=== PATIENT | female | born 1940 | race Caucasian/White ===

== ENCOUNTER 2018-02-13 16:21 | Emergency (ER) | payer MEDICARE, OTHER, SELFPAY ==
[2018-02-13 16:21] VITALS: BP 192/87; PULSE 118; RESP 16; TEMP 36.9; O2SAT 99; BMI 23.3
--- NOTE | 2018-02-13 16:25 | RAD_ITS ---
STUDY: X-RAY - LEFT SHOULDER REASON FOR EXAM: Female, 78 years old. Fall, left shoulder pain. TECHNIQUE: 4 view(s) of the shoulder. COMPARISON: None. FINDINGS: Normal glenohumeral articulation. Normal acromioclavicular joint. Normal acromion. Normal humeral head and visualized proximal humerus. The soft tissue structures are unremarkable. Normal visualized pulmonary apex. RAD/Shoulder min 2 Views IMPRESSION: Normal x-ray examination of the shoulder. No evidence of acute traumatic injury. Electronically Signed: Isaiah Carvalho MD at 17:01 EST Tel , Service support ,
--- NOTE | 2018-02-13 16:50 | ED.VISSUMM ---
- ER Visit Summary Date of Service: 02/13/18 Chief Complaint: Traumatic left shoulder pain History of Present Illness: The patient is a 78 F who is right-hand dominant fell this morning at airport traveling back to [place]. She states she had a near fall. There was no significant direct trauma. She states she was pulling a luggage bag with her right upper extremity. She fell backwards. She completed physical therapy for muscle strain. She apparently has a small rotator cuff tear as well. She denies respiratory or cardiac symptoms. She states she has pain with movement of the left upper extremity and localizes the pain to the left shoulder. Physical Examination: Vital signs are marked for noted blood pressure 192/87. Heart rate 118. She appears no respiratory distress. HEENT exam unremarkable no evidence of trauma. There is no pain the patient over the clavicle or AC joint. There is pain elevation over the humerus. There is no pain the patient over the trapezius or left scapula. Axillary, median, radial and ulnar function intact. Radial pulse palpable. She is able to AB duct to 180 degrees. She reports pain at 90 degrees. She does have pain with passive internal and external rotation as well. Test Results: Three-view x-ray of the shoulder was obtained with no evidence of fracture, subluxation or dislocation. The AC joint appears normal. Emergency Department Course and Treatment: X-ray per nursing protocol Treatment Plan: Rest, ice Tylenol Disposition: Discharged home Impression: Left shoulder strain initial encounter This note was generated with [employer] dictation software. It may contain incorrect words, spelling, and punctuation that were not noted in review of the chart prior to signing ED Disposition - Plan for ED Patient: Disposition: Home or Assisted Living Chief Complaint: Upper Extremity Injury Instructions: ED Sprain Shoulder Referrals: Mustapha Jean III, MD [Primary Care Provider] - 1 Week if not improving
--- NOTE | 2018-02-13 16:53 | ED.DCSUM_ITS ---
- ER Visit Summary Date of Service: 02/13/18 Chief Complaint: Traumatic left shoulder pain History of Present Illness: The patient is a 78 F who is right-hand dominant fell this morning at airport traveling back to [place]. She states she had a near fall. There was no significant direct trauma. She states she was pulling a luggage bag with her right upper extremity. She fell backwards. She completed physical therapy for muscle strain. She apparently has a small rotator cuff tear as well. She denies respiratory or cardiac symptoms. She states she has pain with movement of the left upper extremity and localizes the pain to the left shoulder. Physical Examination: Vital signs are marked for noted blood pressure 192/87. Heart rate 118. She appears no respiratory distress. HEENT exam unremarkable no evidence of trauma. There is no pain the patient over the clavicle or AC joint. There is pain elevation over the humerus. There is no pain the patient over the trapezius or left scapula. Axillary, median, radial and ulnar function intact. Radial pulse palpable. She is able to AB duct to 180 degrees. She reports pain at 90 degrees. She does have pain with passive internal and external rotation as well. Test Results: Three-view x-ray of the shoulder was obtained with no evidence of fracture, subluxation or dislocation. The AC joint appears normal. Emergency Department Course and Treatment: X-ray per nursing protocol Treatment Plan: Rest, ice Tylenol Disposition: Discharged home Impression: Left shoulder strain initial encounter This note was generated with [employer] dictation software. It may contain incorrect words, spelling, and punctuation that were not noted in review of the chart prior to signing ED Disposition - Plan for ED Patient: Disposition: Home or Assisted Living Chief Complaint: Upper Extremity Injury Instructions: ED Sprain Shoulder Referrals: Mustapha Jean III, MD [Primary Care Provider] - 1 Week if not improving
[2018-02-13 17:16] VITALS: BP 150/67; PULSE 104; RESP 16
== END 2018-02-13 17:16 | disposition home or self-care (01) ==
PROVIDERS: Emergency Provider Emergency Medicine; Family Provider Family Medicine; PCP Family Medicine
DX: S46.912A Strain of unspecified muscle, fascia and tendon at shoulder and upper arm level, left arm, initial encounter (principal); W18.30XA Fall on same level, unspecified, initial encounter; Y93.9 Activity, unspecified; Y92.520 Airport as the place of occurrence of the external cause; Y99.9 Unspecified external cause status; I10 Essential (primary) hypertension
CPT/HCPCS: 73030; 99282

== ENCOUNTER 2018-06-26 16:30 | Observation (INO) | payer MEDICARE, OTHER, SELFPAY ==
[2018-06-26] VITALS (9 sets, daily range): BP systolic 142–168; BP diastolic 67–81; PULSE 92–112; RESP 16–19; TEMP 36.6–36.9; O2SAT 96–98; BMI 23.3
--- NOTE | 2018-06-26 16:55 | EKG12_ITS ---
Test Reason : SOB Blood Pressure : / mmHG Vent. Rate : 106 BPM Atrial Rate : 106 BPM P-R Int : 182 ms QRS Dur : 064 ms QT Int : 334 ms P-R-T Axes : 059 023 056 degrees QTc Int : 443 ms Sinus tachycardia Right atrial enlargement Borderline ECG Confirmed by SAJAN CHAVEZ ([id number]), video news editor NICKI FERGUSON ([id number]) on 06/30/2018 2:06:09 PM Referred By: Yolette Pena Confirmed By:SAJAN CHAVEZ
--- NOTE | 2018-06-26 16:55 | CT_ITS ---
STUDY: CTA CHEST REASON FOR EXAM: Female, 78 years old. Lung cancer with right lower lobectomy. Chest pain. RADIATION DOSAGE (If Supplied By Facility): CTDIvol = ( 3.83 ) mGy, DLP = ( 167.55 ) mGycm TECHNIQUE: The examination was performed with the intravenous administration of 75ML IV Isovue 370. Post-processing of the angiographic images was performed, with multiplanar reformation and 3D reconstruction. Individualized dose optimization techniques were used for this CT. COMPARISON: 10/02/2015. FINDINGS: There are stable postsurgical changes in the right lung from a prior right lower lobectomy. There is a stable chronic loculated right pleural effusion. There is stable scarring with associated bronchiectasis in the right lung which may be due to to prior radiation treatment. There is no left-sided effusions or infiltrates. There is no evidence of pulmonary embolus. There is no evidence of thoracic aortic aneurysm or dissection. The heart and pericardium are within normal limits. There is no thoracic lymphadenopathy. Images through the upper abdomen demonstrate no significant abnormality. There is a new expansile osseous lesion in the left scapula which is consistent with metastasis. CT/CTA Chest W/WO Contrast IMPRESSION: No evidence of pulmonary embolus. No evidence of thoracic aortic aneurysm or dissection. Stable postsurgical changes in the right lung from a prior right lower lobectomy. Stable chronic loculated right pleural effusion. Stable scarring with associated bronchiectasis in the right lung which may be due to to prior radiation treatment. New expansile osseous lesion in the left scapula which is consistent with metastasis. Electronically Signed: Casey Harrison, at 20:23 EDT Tel , Service support ,
[2018-06-26] MEDS: Aspirin 81 MG TAB.CHEW 324 MG PO (17:23)
[2018-06-26] MEDS: 0.9% Normal Saline 1,000 ML 150 ML IV (17:24)
[2018-06-26 18:40] LABS: Absolute Lymphocyte Count 0.55 X10^3/ul (0.83-4.51); Absolute Neutrophil Count 5.9 X10^3/uL (2.0-7.7); Basophil# 0.02 X10^3/uL; Basophil% 0.3 % (0-1); Eosinophil# 0.02 X10^3/uL; Eosinophils% 0.3 % (0-5); Hematocrit 41.4 % (37-47); Hemoglobin 13.7 g/dl (12.0-15.0); Lymphocyte # 0.55 X10^3/ul (4.0); Lymphocyte % 7.5 % (19-41); Mean Corp Hgb Conc 33.1 g/gl (32-36); Mean Corpuscular Hgb 29.9 pg (27.0-32.0); Mean Corpuscular Volume 90.4 fL (81-99); Mean Platelet Vol. 8.9 fl (6.2-12.0); Monocyte# 0.81 X10^3/uL; Neutrophil # 5.92 X10^3/uL (2.7-7.7); Neutrophil % 80.6 % (47-70); Platelet Count 166 K/mm3 (150-450); RBC Distribution Width CV 14.4 % (11.6-14.6); RBC Distribution Width SD 47.6 fl (35.1-43.9); Red Blood Count 4.58 M/mm3 (4.2-5.4); White Blood Count 7.3 K/mm3 (4.4-11.0)
[2018-06-26 18:43] LABS: Differential Indicated SCAN CRITERIA MET; POSITIVE COUNT NO; POSITIVE DIFFERENTIAL YES; POSITIVE MORPHOLOGY NO
[2018-06-26 18:57] LABS: Anion Gap 8 (5-15); BUN 23 mg/dL (7-18); BUN/Creat Ratio 24.3 RATIO (10-20); Calcium,Total 8.8 mg/dL (8.5-10.1); Chloride 106 mmol/L (98-107); Creatinine, Serum 0.94 mg/dL (0.55-1.02); EST Glomerular Filtration Rate 61 mL/min (>60); Est Glom Filt Rate - Afr Amer 74 mL/min (>60); Estimated Creatinine Clearance 44.38 ml/min; Glucose 92 mg/dL (74-106); Potassium 4.1 mmol/L (3.5-5.1); Sodium Level 138 mmol/L (136-145)
[2018-06-26 18:59] LABS: Anisocytosis RARE; Macrocytosis RARE; Platelet Estimate ADEQUATE (ADEQ)
--- NOTE | 2018-06-26 19:55 | ED.DCSUM_ITS ---
- ER Visit Summary Date of Service: 06/26/18 Chief Complaint: [Shortness of breath] History of Present Illness: The patient is a 78 F [Zentz to the ER with shortness of breath for about 2 weeks. Patient complains of exertional dyspnea and at times some chest tightness associated with it. She denies any fever or cough. Patient was seen by nurse practitioner in her doctor's office today and had some blood work and it was noted that she had a d-dimer that was elevated so she was referred to the ER for a CT scan to rule out PE. Patient's scheduled to fly to [facility] tomorrow to see her daughter. Patient also had an echocardiogram about 3 days ago that was unremarkable. Patient's last stress t est was about 5 years ago. Patient does have history of prior lung cancer with partial lobectomy 5 years ago.] Physical Examination: [HEENT-PERRLA, EOMI. Cranial nerves II through XII grossly intact. TMs clear. Mucous membranes moist. No adenopathy. Cardiovascular-regular rate and rhythm without murmur or ectopy Lungs-clear to auscultation, chest wall stable without crepitus or subcu emphysema Abdomen-normoactive bowel sounds, soft, nontender, no rebound or rigidity, no peritoneal signs. Extremities-intact ?4, normal range of motion, normal pulses, atraumatic] Test Results: [EKG obtained arrival shows sinus rhythm with a sinus tachycardia with a ventricular rate of 106 bpm with no acute ST segment changes. CBC with differential showed a white count 7.3, hemoglobin 13.7, hematocrit 41, platelets 166. Chemistries unremarkable. Troponin is less than 0.015.] CTA of the chest was obtained and showed no evidence for PE or dissection. Patient was noted to have prior right lower lobe lobectomy with a complex chronic effusion and some right lung scarring with bronchiectasis. Emergency Department Course and Treatment: [Patient was given aspirin] Treatment Plan: [Patient case will be discussed with hospitalist evaluate patient for admission] Disposition: [Admit.] Impression: [Chest pain-rule out acute currently syndrome] This note was generated with [employer] dictation software. It may contain incorrect words, spelling, and punctuation that were not noted in review of the chart prior to signing ED Disposition - Plan for ED Patient: Referrals: Mustapha Jean III, MD [Primary Care Provider] -
--- NOTE | 2018-06-26 20:49 | HP.PCM_ITS ---
Problem List (1) Exertional dyspnea Status: Acute (2) Chest tightness Status: Acute (3) Osteolytic lesion due to metastasis Status: Acute (4) Sinus tachycardia Status: Chronic (5) Carcinoid tumor Status: Chronic History of Present Illness Date of Admission: 06/26/18 Chief Complaint: Chest tightness, exertional dyspnea The patient is a 78 y/o F w/ PMHx: Hx Carcinoid Tumor RLL s/p resection, chemotherapy and radiation 5 years prior following w/ Dr. Berger and [facility] Pulmonary, Sinus tachycardia previously following with Dr. Luz on beta- ventura therapy who presents to the [facility] ED on 06/26/18 with history of 3 history of progressively worsening chest diffuse tightness with dyspnea primarily with exertion with no specific pain or discomfort with no associated diaphoresis, nausea or emesis with PCP office evaluation with noted unremarkable echocardiogram per patient self-report however had elevated d-dimer which prompted referral to the ED for CTPA. Work-up in the ED included T 98.4, heart rate 110, BP 160/70, respiratory rate 17, 96% on room air, BC with WC 7.3, hemoglobin 13.7, platelets 166 with mild increased neutrophils, increased monocytes, BMP not marked appearing aside BUN elevation to 23, troponin less than 0.015, CTPA with no acute evidence of pulmonary embolism or thoracic aortic aneurysm or dissection, stable postsurgical changes right lung from prior right lower lobe lobectomy, stable chronic loculated right pleural effusion, stable scarring with associated bronchiectasis in the right lung secondary to prior radiation treatment, new expansile osseous lesion in the left scapula which is consistent with metastasis. In the ED patient ministered normal saline, aspirin 324 mg p.o. x1. Past Medical History Past Medical History (Chronic Problems): Chronic Problems Sinus tachycardia (Chronic) Carcinoid tumor (Chronic) Allergies fluorouracil Allergy (Verified 06/26/18 16:33) Swelling Home Medications: Ambulatory Orders Medication Instructions Recorded Estradiol [Estrace Vaginal Cream] 1 dose VAGINAL DAILY 11/02/13 Amoxicillin/Potassium Clav 1 tab PO BID 06/26/18 [Amox-Clav 875-125 mg Tablet] Calcium (Elemental) [Os-Von 500] 500 mg PO QODAY 06/26/18 Cholecalciferol (Vitamin D3) 2,000 unit PO DAILY 06/26/18 [D3-1999] Metoprolol Succinate [Toprol Xl] 25 mg PO DAILY 06/26/18 Prednisone 5 mg PO DAILY 06/26/18 Zolpidem Tartrate 5 mg PO PRN PRN 06/26/18 Surgical History: - - Right LL lung resection. Psychiatric History: No pertinent psych hx [employer] History: No pertinent [employer] history Lives: Alone Smoking Status: Never smoker Tobacco Use: Non-smoker Alcohol: None Drugs: None - *Family History Maternal History Items: - - Patient notes that her mother was healthy, age 96, no history of heart disease, diabetes or cancer. Paternal History Items: - - Patient notes a paternal family history of heart disease, in his 50s. Review of Systems Constitutional: Reports: Fatigue. Denies: Chills, Fever, Weight Change HEENT: Denies: Head Aches, Sinus Congestion, Sinus Drainage Cardiovascular: Reports: Chest Tightness. Denies: Chest Pain, Palpitations Respiratory: Reports: Shortness of breath upon exertion. Denies: Cough, Shortness of Breath, Shortness of breath at rest, Sputum production, Wheezing Gastrointestinal: Denies: Abdominal Pain, Nausea, Vomiting Genitourinary: Denies: Dysuria Musculoskeletal: Denies: Joint Pain, Joint Tenderness Skin: Denies: Rash, Wounds Neurological: Denies: Numbness, Tingling, Focal weakness Psychiatric: Denies: Anxiety, Depression, Homicidal Ideations, Suicidal Ideations Hematologic/ Lymphatic: Denies: Easy Bruising, Easy Bleeding VTE Information - Inpt Only VTE Present on Admission: No VTE Mechan Device Prophylaxis: SCD's VTE Pharm Prophylaxis ordered?: Yes Patient Problems: Active and Suspected Problems Exertional dyspnea (Acute) Chest tightness (Acute) Osteolytic lesion due to metastasis (Acute) Subjective: Seated upright in the ED, mildly fatigued appearance, mildly anxious following recent discussion regarding CT chest results with noted possible new expansile osseous lesion in the left scapular region. Objective: Physical Examination: General: awake, alert, oriented x 3 and cooperative, seated upright in the ED bed in no apparent distress, no specific chest tightness or dyspnea at this time. Skin: normal color, turgor, no icterus, cyanosis. HEENT: AT/NC, EOMI, PERRLA, MMM, no carotid bruits or JVD noted. Lungs: CTA bilaterally, moderate effort, mild decrease BL bases, no rales, ronchi or wheezing. Heart: Mildly tachycardic with regular rhythm; no gallop, rub audible. Abdomen: soft, NTTP, ND, normal BS, no HSM. Extremities: no cyanosis, clubbing, or edema, able to discern a mild left scapular enlargement compared to right. Neurological: patient awake, alert, oriented x 3; cognitive function intact; pupils equally reactive to light and accomodation; cranial nerves II-XII grossly normal, moving all 4 extremities, no focal deficits, strength mildly globally decreased secondary to acute presentation. Psychiatric: affect appears mildly fatigued, anxious given recent discussion of CT findings, no acute evidence of depressive feelings. - Physical Exam Vital Signs Temp Pulse Resp BP Pulse Ox 98.4 F 110 H 17 168/78 H 96 06/26/18 20:29 06/26/18 20:29 06/26/18 20:29 06/26/18 20:29 06/26/18 20:29 Oxygen Delivery Method Room Air Weight: 140 lb Body Mass Index (BMI) 23.3 Laboratory Tests Past 24 Hrs 06/26/18 06/26/18 18:30 18:30 WBC 7.3 RBC 4.58 Hgb 13.7 Hct 41.4 MCV 90.4 MCH 29.9 MCHC 33.1 RDW 14.4 RDW Differential 47.6 H Plt Count 166 MPV 8.9 Immature Gran % (Auto) 0.300 Neut % (Auto) 80.6 H Lymph % (Auto) 7.5 L Bertie % (Auto) 11.0 H Eos % (Auto) 0.3 Baso % (Auto) 0.3 Absolute Neuts (auto) 5.9 Absolute Lymphs (auto) 0.55 L Total Counted Not Reportable Differential Comment SEE COMMENT Platelet Estimate ADEQUATE Anisocytosis RARE Macrocytosis RARE Sodium 138 Potassium 4.1 Chloride 106 Carbon Dioxide 24.0 Anion Gap 8 BUN 23 H Creatinine 0.94 Estim Creat Clear Calc 44.38 Est GFR (MDRD) Af Amer 74 Est GFR (MDRD) Non-Af 61 BUN/Creatinine Ratio 24.3 H Glucose 92 Calcium 8.8 Troponin I < 0.015 Assessment/Plan All Active Problems Exertional dyspnea (Acute) Chest tightness (Acute) Osteolytic lesion due to metastasis (Acute) The patient is a 78 y/o F w/ PMHx: Hx Carcinoid Tumor RLL s/p resection, chemotherapy and radiation 5 years prior following w/ Dr. Berger and Pulmonary, Sinus tachycardia previously following with Dr. Luz on beta- ventura therapy who presents to the [facility] ED on 06/26/18 with history of 3 history of progressively worsening chest diffuse tightness with dyspnea primarily with exertion with no specific pain or discomfort with no associated diaphoresis, nausea or emesis with PCP office evaluation with noted unremarkable echocardiogram per patient self-report however had elevated d-dimer which prompted referral to the ED. (1) Exertional dyspnea, chest tightness: EKG in ED with sinus tachycardia with no acute evidence of ischemia, CTPA with no acute evidence of pulmonary embolism or thoracic aortic aneurysm or dissection, stable postsurgical changes right lung from prior right lower lobe lobectomy, stable chronic loculated right pleural effusion, stable scarring with associated bronchiectasis in the right lung secondary to prior radiation treatment, new expansile osseous lesion in the left scapula which is consistent with metastasis, initial trop normal x 1. Will admit to PCU, place on a monitored bed to assure no acute myocardial infarction with serial cardiac enzymes and EKGs. Patient is unable to perform exercise thus will proceed with AM nuclear stress testing. ASA, NG, morphine. FLP in AM. Mag pending. Recent normal ECHO from patient report at , records requested. Presentation may be related to new findings as noted #2. (2) Hx Carcinoid Tumor w/ New L Scapular Osseous Lesion: RLL s/p resection, chemotherapy and radiation 5 years prior following w/ Dr. Berger and Pulmonary, given new findings on CT chest with new expansile osseous lesion in the left scapular region will consult Dr. Berger. (3) Sinus tachycardia, known history: We will continue home beta-ventura therapy. Has followed with Dr. carrasco outpatient for this long-term. (4) DVT prophylaxis: SCDs, Lovenox. Code Visit OBSV E&M: 80682 Initial observation care L3
--- NOTE | 2018-06-26 21:35 | EKG12_ITS ---
Test Reason : AM Blood Pressure : / mmHG Vent. Rate : 093 BPM Atrial Rate : 093 BPM P-R Int : 134 ms QRS Dur : 062 ms QT Int : 344 ms P-R-T Axes : 051 014 053 degrees QTc Int : 427 ms Normal sinus rhythm Biatrial enlargement Low voltage QRS Abnormal ECG Confirmed by KARLIE PRATER, RYANN ([id number]), editor producer NICKI FERGUSON ([id number]) on 07/02/2018 2:02:35 PM Referred By: Yolette Pena Confirmed By:RYANN ZIEGLER MD
[2018-06-26 22:28] LABS: Magnesium 2.2 mg/dL (1.6-2.6)
[2018-06-26] MEDS: 0.9% Normal Saline 1,000 ML 100 ML IV (23:01)
[2018-06-26] MEDS: 0.9% NaCl Peripheral Flush Adult/Peds IV (23:01)
[2018-06-26] MEDS: Metoprolol Tartrate 25 MG Tablet PO (23:09)
[2018-06-27 02:56] VITALS: PULSE 103
[2018-06-27 04:07] VITALS: BP 149/68; PULSE 94; RESP 16; TEMP 36.8; O2SAT 97
--- NOTE | 2018-06-27 05:55 | EKG12_ITS ---
Test Reason : CP ADMISSION Blood Pressure : / mmHG Vent. Rate : 106 BPM Atrial Rate : 106 BPM P-R Int : 180 ms QRS Dur : 062 ms QT Int : 324 ms P-R-T Axes : 051 023 048 degrees QTc Int : 430 ms Sinus tachycardia Biatrial enlargement Abnormal ECG Confirmed by KARLIE PRATER, RYANN ([id number]), electronic news gathering editor NICKI FERGUSON ([id number]) on 07/02/2018 2:04:14 PM Referred By: Yolette Pena Confirmed By:RYANN ZIEGLER MD
[2018-06-27] MEDS: Aspirin E.C. 81 MG Tablet PO (06:03)
[2018-06-27 06:15] LABS: Hematocrit 39.8 % (37-47); Mean Corp Hgb Conc 32.7 g/gl (32-36); Mean Corpuscular Hgb 29.4 pg (27.0-32.0); Mean Platelet Vol. 9.1 fl (6.2-12.0); Platelet Count 177 K/mm3 (150-450); RBC Distribution Width CV 14.6 % (11.6-14.6); RBC Distribution Width SD 47.7 fl (35.1-43.9); Red Blood Count 4.42 M/mm3 (4.2-5.4); White Blood Count 6.3 K/mm3 (4.4-11.0)
[2018-06-27 06:18] LABS: International Normalized Ratio 1.1; Prothrombin Time (Protime)PT. 13.6 SECONDS (11.7-14.9)
[2018-06-27 06:19] LABS: Partial Thromboplast Time 29.1 Seconds (24.1-36.2)
[2018-06-27 06:22] LABS: Scan Indicated on CBC? Y/N NO
[2018-06-27 06:28] LABS: ALB/GLOB Ratio 0.8 RATIO (0.9-2.4); AST(SGOT) 26 U/L (15-37); Alanine Aminotransfer ALT/SGPT 31 U/L (13-56); Albumin, Serum 2.9 g/dL (3.2-5.0); Alkaline Phosphatase 75 U/L (45-117); Anion Gap 8 (5-15); BUN 14 mg/dL (7-18); BUN/Creat Ratio 18.9 RATIO (10-20); Calcium,Total 8.4 mg/dL (8.5-10.1); Chloride 112 mmol/L (98-107); Cholesterol 153 mg/dL (200); Creatinine, Serum 0.74 mg/dL (0.55-1.02); EST Glomerular Filtration Rate 81 mL/min (>60); Est Glom Filt Rate - Afr Amer 98 mL/min (>60); Estimated Creatinine Clearance 41.72 ml/min; Globulin 3.5 g/dL (2.2-4.2); Glucose 102 mg/dL (74-106); High Density Lipoprotein 57 mg/dL; Potassium 3.8 mmol/L (3.5-5.1); Protein, Total 6.4 g/dL (6.4-8.2); Sodium Level 143 mmol/L (136-145); Triglycerides 121 mg/dL; Very Low Density Lipoprotein 24 mg/dL (5-40)
[2018-06-27 09:25] VITALS: PULSE 78
[2018-06-27] MEDS: Metoprolol(XL)Succ 25 MG Tablet PO (09:25)
[2018-06-27] MEDS: predniSONE 5 MG Tablet PO (09:25)
--- NOTE | 2018-06-27 09:42 | STRESSREP_ITS ---
Stress Test Report Pharmacologic myocardial perfusion stress test. 78-year-old lady with a history of chest pain. Stress protocol: Resting EKG demonstrates sinus tachycardia with a rate of 102 bpm normal intervals are noted resting blood pressures 148/60 6 m of mercury. 0.4 mg of regadenoson was infused per usual protocol followed by rapid intravenous and flush injection continuous EKG monitoring was performed. The patient maintained sinus rhythm throughout the recording. The maximum heart rate attained was 123 bpm which was 86% of maximum predicted heart rate the maximum workload was 1 metabolic equivalent. At rest there were no ST or T wave changes noted suggest abnormal flow reserve at peak infusion nonspecific ST-T wave changes were noted with no meet the criteria for ischemia. The resting blood pressures 148/66 with a final blood pressure 150/62 mmHg. Myocardial perfusion protocol. 11.6 mCi of technetium 99m sestamibi was injected at rest. 0.4 mg of regadenoson was infused per usual protocol peak infusion 33.6 mCi of technetium 99m sestamibi was injected stress images were obtained stress and rest images were reconstructed in comparing the short axis vertical long horizontal long axis. Gated images were also obtained Perfusion SPECT analysis: Review of the stress images demonstrate normal uptake of tracer noted in all are as of myocardium. The resting images similarly demonstrate normal uptake of tracer noted in all areas of the myocardium. No wall motion abnormalities are noted. Gated SPECT analysis: The gated ejection fraction is noted to be over 80%. Conclusion: Normal pharmacologic myocardial perfusion stress test. Preserved ejection fraction.
[2018-06-27 10:07] VITALS: BP 112/78; PULSE 95; RESP 16; TEMP 36.7; O2SAT 97
[2018-06-27 10:19] VITALS: PULSE 96
--- NOTE | 2018-06-27 11:39 | DCINST_ITS ---
- Discharge Diagnoses Current Active Problems: Current Active and Chronic Problems Exertional dyspnea (Acute) Chest tightness (Acute) Sinus tachycardia (Chronic) Carcinoid tumor (Chronic) Osteolytic lesion due to metastasis (Acute) You will use the following diet at home:: No restrictions Discharge Activity: Return to Normal Activity Call your doctor if you observe: Shortness of breath, Dizziness, Fainting spells, Chest pain Allergies/Adverse Reactions: Allergies fluorouracil Allergy (Verified 06/26/18 16:33) Swelling Medications to take at Discharge Estradiol [Estrace Vaginal Cream] 1 dose VAGINAL DAILY 11/02/13 Amoxicillin/Potassium Clav [Amox-Clav 875-125 mg Tablet] 1 tab PO BID 06/26/18 Calcium (Elemental) [Os-Von 500] 500 mg PO QODAY 06/26/18 Cholecalciferol (Vitamin D3) [D3-2000] 2,000 unit PO DAILY 06/26/18 Metoprolol Succinate [Toprol Xl] 25 mg PO DAILY 06/26/18 Prednisone 5 mg PO DAILY 06/26/18 Zolpidem Tartrate 5 mg PO PRN PRN 06/26/18 Primary Care Physician: Mustapha Jean III, MD [Primary Care Provider] - Please follow up with your Primary Care Physician in: 1 Week Test Results: Test results from this visit will be discussed in further detail at your follow- up appointment, if applicable. Please Follow Up With: Lc Berger DO When: 4pm today, arrive at 3:45 Proposed Discharge Date: 06/27/18
--- NOTE | 2018-06-27 11:40 | PCM.DC.SUM ---
<Sarahi Hall - Last Filed: 06/27/18 11:53> Discharge Date and Diagnosis Date of Admission: 06/26/18 Date of Discharge: 06/27/18 - Primary Discharge Diagnosis Active and Suspected Problems 1. Chest tightness, worsening exertional dyspnea- ACS/Cardiac etiology ruled out. 2. 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 Chronic sinus tachycardia - Secondary Discharge Diagnosis Chronic Problems Sinus tachycardia (Chronic) Carcinoid tumor (Chronic) Hospital Course and Treatment Imaging Results: Diagnostic Data Chest CTA 06/26/18 16:55 IMPRESSION: No evidence of pulmonary embolus. No evidence of thoracic aortic aneurysm or dissection. Stable postsurgical changes in the right lung from a prior right lower lobectomy. Stable chronic loculated right pleural effusion. Stable scarring with associated bronchiectasis in the right lung which may be due to to prior radiation treatment. New expansile osseous lesion in the left scapula which is consistent with metastasis. Electronically Signed: Casey Christy, at 20:23 EDT Tel , Service support , Dr. Berger- Oncology Operations: None Procedures: Stress test Summary of Care Provided: The patient is a 78 year old F admitted 06/26/2018 due to chest tightness and exertional dyspnea. 1. Chest tightness, worsening exertional dyspnea- ACS/Cardiac etiology ruled out. Troponin negative. Patient underwent nuclear stress test which was negative for ischemia. She reports in the past 2 weeks she had an echocardiogram ordered by her primary care physician which she was told was normal. Oxygen stable on room air. Per oncology, patient has had chronic dyspnea as well as history of right lower lobe resection. Recommend continued follow-up with [facility] pulmonary medicine. Follow-up with primary care physician in 1 week. Follow-up with oncology, Dr. Berger this afternoon at 4pm. 2. 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 Oncology reports patient has had poor follow-up recently. Patient will follow up with Dr. Berger this evening at 4pm. Per oncology, anticipate outpatient PET scan. 3. Chronic sinus tachycardia- Previously followed with Dr. Cooper. Continue beta-ventura regimen. Patient seen and examined prior to discharge. Physical assessment as noted below. Patient is stable for discharge with follow up recommendations as noted above. This patient was seen by RAVI Lara under the supervision of Dr. Torres. - Physical Exam General: Alert, Oriented x3, Cooperative HEENT: Atraumatic, PERRLA, EOMI, Normocephalic Neck: Supple, No JVD, Negative Carotid Bruits Lungs: Clear to auscultation, Normal air movement Cardiovascular: Regular rate, Regular Rhythm, Normal S1, Normal S2, No murmurs Abdomen: Bowel Sounds Present, Soft, Non Tender, Non-Distended Extremities: No clubbing, No cyanosis, No edema, Capillary Refill Less than 3 Seconds Skin: No rashes, No breakdown Musculoskeletal: No Tenderness to Palpation of Joints or Extremities Neurological: Cranial nerves II-XII grossly intact, Neuro grossly intact Psych/Mental Status: Normal Affect, Appropriate Vital Signs Temp Pulse Resp BP Pulse Ox 98.1 F 96 16 112/78 97 06/27/18 10:07 06/27/18 10:19 06/27/18 10:07 06/27/18 10:07 06/27/18 10:07 Oxygen Delivery Method Room Air Weight: 139 lb 15.896 oz Body Mass Index (BMI) 23.3 Intake and Output for Last 24 Hours 06/25/18 06/26/18 06/27/18 23:59 23:59 23:59 Intake Total 120 / 120 1115 / 1115 Balance 120 / 120 1115 / 1115 Laboratory Tests Past 24 Hrs 06/26/18 06/26/18 06/26/18 18:30 18:30 22:06 WBC 7.3 RBC 4.58 Hgb 13.7 Hct 41.4 MCV 90.4 MCH 29.9 MCHC 33.1 RDW 14.4 RDW Differential 47.6 H Plt Count 166 MPV 8.9 Immature Gran % (Auto) 0.300 Neut % (Auto) 80.6 H Lymph % (Auto) 7.5 L [place] % (Auto) 11.0 H Eos % (Auto) 0.3 Baso % (Auto) 0.3 Absolute Neuts (auto) 5.9 Absolute Lymphs (auto) 0.55 L Total Counted Not Reportable Differential Comment SEE COMMENT Platelet Estimate ADEQUATE Anisocytosis RARE Macrocytosis RARE PT INR APTT Sodium 138 Potassium 4.1 Chloride 106 Carbon Dioxide 24.0 Anion Gap 8 BUN 23 H Creatinine 0.94 Estim Creat Clear Calc 44.38 Est GFR (MDRD) Af Amer 74 Est GFR (MDRD) Non-Af 61 BUN/Creatinine Ratio 24.3 H Glucose 92 Calcium 8.8 Magnesium 2.2 Total Bilirubin AST ALT Alkaline Phosphatase Troponin I < 0.015 Total Protein Albumin Globulin Albumin/Globulin Ratio Triglycerides Cholesterol LDL Cholesterol VLDL Cholesterol HDL Cholesterol 06/26/18 06/27/18 06/27/18 22:06 00:03 05:35 WBC 6.3 RBC 4.42 Hgb 13.0 Hct 39.8 MCV 90.0 MCH 29.4 MCHC 32.7 RDW 14.6 RDW Differential 47.7 H Plt Count 177 MPV 9.1 Immature Gran % (Auto) Neut % (Auto) Lymph % (Auto) [place] % (Auto) Eos % (Auto) Baso % (Auto) Absolute Neuts (auto) Absolute Lymphs (auto) Total Counted Differential Comment Platelet Estimate Anisocytosis Macrocytosis PT INR APTT Sodium Potassium Chloride Carbon Dioxide Anion Gap BUN Creatinine Estim Creat Clear Calc Est GFR (MDRD) Af Amer Est GFR (MDRD) Non-Af BUN/Creatinine Ratio Glucose Calcium Magnesium Total Bilirubin AST ALT Alkaline Phosphatase Troponin I < 0.015 < 0.015 Total Protein Albumin Globulin Albumin/Globulin Ratio Triglycerides Cholesterol LDL Cholesterol VLDL Cholesterol HDL Cholesterol 06/27/18 06/27/18 05:35 05:35 WBC RBC Hgb Hct MCV MCH MCHC RDW RDW Differential Plt Count MPV Immature Gran % (Auto) Neut % (Auto) Lymph % (Auto) [place] % (Auto) Eos % (Auto) Baso % (Auto) Absolute Neuts (auto) Absolute Lymphs (auto) Total Counted Differential Comment Platelet Estimate Anisocytosis Macrocytosis PT 13.6 INR 1.1 APTT 29.1 Sodium 143 Potassium 3.8 Chloride 112 H Carbon Dioxide 23.0 Anion Gap 8 BUN 14 Creatinine 0.74 Estim Creat Clear Calc 41.72 Est GFR (MDRD) Af Amer 98 Est GFR (MDRD) Non-Af 81 BUN/Creatinine Ratio 18.9 Glucose 102 Calcium 8.4 L Magnesium Total Bilirubin 0.40 AST 26 ALT 31 Alkaline Phosphatase 75 Troponin I Total Protein 6.4 Albumin 2.9 L Globulin 3.5 Albumin/Globulin Ratio 0.8 L Triglycerides 121 Cholesterol 153 LDL Cholesterol 72 VLDL Cholesterol 24 HDL Cholesterol 57 Discharge Diet: No Restrictions Discharge Activity: Return to Normal Activity Call your doctor if you observe: Shortness of breath, Dizziness, Fainting spells, Chest pain Home Medications: Medications to take at Discharge Estradiol [Estrace Vaginal Cream] 1 dose VAGINAL DAILY 11/02/13 Amoxicillin/Potassium Clav [Amox-Clav 875-125 mg Tablet] 1 tab PO BID 06/26/18 Calcium (Elemental) [Os-Von 500] 500 mg PO QODAY 06/26/18 Cholecalciferol (Vitamin D3) [D3-2000] 2,000 unit PO DAILY 06/26/18 Metoprolol Succinate [Toprol Xl] 25 mg PO DAILY 06/26/18 Prednisone 5 mg PO DAILY 06/26/18 Zolpidem Tartrate 5 mg PO PRN PRN 06/26/18 Primary Care Physician: Mustapha Jean III, MD [Primary Care Provider] - Please follow up with your Primary Care Physician in: 1 Week Please Follow Up With: Lc Berger DO When: 4pm today, arrive at 3:45 Disposition: Home Minutes spent on discharge:: 35 Patient Condition:: Stable Medical Necessity - Tobacco Use Smoking Status: Never smoker Tobacco Use: Non-smoker Meaningful Use Info Meaningful Use Diagnoses (Choose all that apply): None applicable <Kevin Torres - Last Filed: 06/27/18 13:22> Discharge Date and Diagnosis - Secondary Discharge Diagnosis Chronic Problems Sinus tachycardia (Chronic) Carcinoid tumor (Chronic) Hospital Course and Treatment Imaging Results: 06/27/18 05:55 Nuclear Stress Test - Chemical [NM] AM (NON MEDS) Summary of Care Provided: This patient was seen in conjunction with RAVI Lara . I have independently interviewed and examined the patient and reviewed pertinent historical, laboratory, and other data. Please refer to RAVI Lara note for details of this patient's presentation, findings, and recommendations. I have reviewed RAVI Lara note and concur with documented findings. In brief, patient is a 78-year-old lady who presented with chest pain. Patient was placed on a monitored bed [place] was ruled out with serial cardiac enzymes underwent subsequent evaluation with a nuclear stress test which was negative for stress-induced ischemia. Discharge home instructed to follow-up with PCP as well as primary oncologist for her carcinoid tumor Hospital course: As documented above by Sarahi Hall NP?C - Physical Exam Vital Signs Temp Pulse Resp BP Pulse Ox 98.1 F 96 16 112/78 97 06/27/18 10:07 06/27/18 10:19 06/27/18 10:07 06/27/18 10:07 06/27/18 10:07 Oxygen Delivery Method Room Air Weight: 63.5 kg Body Mass Index (BMI) 23.3 Intake and Output for Last 24 Hours 06/25/18 06/26/18 06/27/18 23:59 23:59 23:59 Intake Total 120 / 120 1115 / 1115 Balance 120 / 120 1115 / 1115 Laboratory Tests Past 24 Hrs 06/26/18 06/26/18 06/26/18 18:30 18:30 22:06 WBC 7.3 RBC 4.58 Hgb 13.7 Hct 41.4 MCV 90.4 MCH 29.9 MCHC 33.1 RDW 14.4 RDW Differential 47.6 H Plt Count 166 MPV 8.9 Immature Gran % (Auto) 0.300 Neut % (Auto) 80.6 H Lymph % (Auto) 7.5 L [place] % (Auto) 11.0 H Eos % (Auto) 0.3 Baso % (Auto) 0.3 Absolute Neuts (auto) 5.9 Absolute Lymphs (auto) 0.55 L Total Counted Not Reportable Differential Comment SEE COMMENT Platelet Estimate ADEQUATE Anisocytosis RARE Macrocytosis RARE PT INR APTT Sodium 138 Potassium 4.1 Chloride 106 Carbon Dioxide 24.0 Anion Gap 8 BUN 23 H Creatinine 0.94 Estim Creat Clear Calc 44.38 Est GFR (MDRD) Af Amer 74 Est GFR (MDRD) Non-Af 61 BUN/Creatinine Ratio 24.3 H Glucose 92 Calcium 8.8 Magnesium 2.2 Total Bilirubin AST ALT Alkaline Phosphatase Troponin I < 0.015 Total Protein Albumin Globulin Albumin/Globulin Ratio Triglycerides Cholesterol LDL Cholesterol VLDL Cholesterol HDL Cholesterol 06/26/18 06/27/18 06/27/18 22:06 00:03 05:35 WBC 6.3 RBC 4.42 Hgb 13.0 Hct 39.8 MCV 90.0 MCH 29.4 MCHC 32.7 RDW 14.6 RDW Differential 47.7 H Plt Count 177 MPV 9.1 Immature Gran % (Auto) Neut % (Auto) Lymph % (Auto) [place] % (Auto) Eos % (Auto) Baso % (Auto) Absolute Neuts (auto) Absolute Lymphs (auto) Total Counted Differential Comment Platelet Estimate Anisocytosis Macrocytosis PT INR APTT Sodium Potassium Chloride Carbon Dioxide Anion Gap BUN Creatinine Estim Creat Clear Calc Est GFR (MDRD) Af Amer Est GFR (MDRD) Non-Af BUN/Creatinine Ratio Glucose Calcium Magnesium Total Bilirubin AST ALT Alkaline Phosphatase Troponin I < 0.015 < 0.015 Total Protein Albumin Globulin Albumin/Globulin Ratio Triglycerides Cholesterol LDL Cholesterol VLDL Cholesterol HDL Cholesterol 06/27/18 06/27/18 05:35 05:35 WBC RBC Hgb Hct MCV MCH MCHC RDW RDW Differential Plt Count MPV Immature Gran % (Auto) Neut % (Auto) Lymph % (Auto) [place] % (Auto) Eos % (Auto) Baso % (Auto) Absolute Neuts (auto) Absolute Lymphs (auto) Total Counted Differential Comment Platelet Estimate Anisocytosis Macrocytosis PT 13.6 INR 1.1 APTT 29.1 Sodium 143 Potassium 3.8 Chloride 112 H Carbon Dioxide 23.0 Anion Gap 8 BUN 14 Creatinine 0.74 Estim Creat Clear Calc 41.72 Est GFR (MDRD) Af Amer 98 Est GFR (MDRD) Non-Af 81 BUN/Creatinine Ratio 18.9 Glucose 102 Calcium 8.4 L Magnesium Total Bilirubin 0.40 AST 26 ALT 31 Alkaline Phosphatase 75 Troponin I Total Protein 6.4 Albumin 2.9 L Globulin 3.5 Albumin/Globulin Ratio 0.8 L Triglycerides 121 Cholesterol 153 LDL Cholesterol 72 VLDL Cholesterol 24 HDL Cholesterol 57 Code Visit OBSV E&M: [id number] Observation care discharge
== END 2018-06-27 11:38 | disposition home or self-care (01) ==
LOC: ED 18:56 → PCU 21:29
PROVIDERS: Admitting Provider Family Medicine; Emergency Provider Emergency Medicine; Family Provider Family Medicine; PCP Family Medicine; Referring Provider Family Medicine; Visit Provider Internal Medicine
DX: R07.89 Other chest pain (principal); R06.09 Other forms of dyspnea; R00.0 Tachycardia, unspecified; Z85.118 Personal history of other malignant neoplasm of bronchus and lung; Z92.3 Personal history of irradiation; Z79.899 Other long term (current) drug therapy; Z79.52 Long term (current) use of systemic steroids; M89.512 Osteolysis, left shoulder; R94.31 Abnormal electrocardiogram [ECG] [EKG]
CPT/HCPCS: 36415; 71275; 78452; 80048; 80053; 80061; 83735; 84484; 85025; 85027; 85610; 85730; 93005; 93017; 96360; 96361; 99218; 99285; A9500; J7030; Q9967; A4216; G0378; J2785

== ENCOUNTER → 2018-07-07 08:35 | Outpatient (CLI) | payer MEDICARE, OTHER, SELFPAY ==
[2018-06-26 22:12] VITALS: BMI 23.3
--- NOTE | 2018-07-07 09:45 | PET_ITS ---
EXAMINATION: FDG PET/CT INDICATIONS: A 78-year-old female with reported history of primary carcinoid malignancy of the lung presenting for restaging examination. COMPARISON EXAMINATION: Previous FDG PET study dated 07/12/16, CTA of the chest report dated 06/26/18 INDEX LESION SIZE SUV INTERPRETATION NEW: axial skeletal structures 3.1 (max) Fulfills quantitative criteria for viable neoplasm TECHNIQUE: Following the intravenous administration of F-18 deoxyglucose, multiplanar image acquisitions of the neck, chest, abdomen and pelvis to level of mid thigh, obtained at one hour post radiopharmaceutical administration contemporaneously interpreted with the current CT of the neck, chest, abdomen and pelvis to level of mid thigh, dated 07/07/18 via coregistration and previous FDG PET study dated 07/12/16, CTA of the chest report dated 06/26/18 reveal: FINDINGS: 1. Newly identified increased glucose metabolism is manifest in the left lateral chest wall contiguous to the sixth rib, the left scapula, left posterior ischium, the ninth thoracic vertebra. The calculated maximal standard uptake value is 3.1. Corresponding primarily lytic change is noted in the analogous locations on review of CT of the neck-pelvis dated 07/07/18. 2. Diffuse non-nodular increased glucose metabolism persists in the right hemithorax pulmonary parenchyma generating a current calculated maximal standard uptake value of 1.8, compared to 1.4 defined on the FDG PET study dated 07/12/16. Quantitative criteria for viable neoplasm are not fulfilled. 3. Normal physiologic distribution of the radiopharmaceutical is apparent in the hepatic (3.5) and splenic parenchyma, both renal units, bladder and visualized intestinal tract. The visualized portion of the cerebral cortex demonstrate symmetric and preserved glucose metabolism. Diffuse radiopharmaceutical concentration is noted in all four quadrants of the abdomen and pelvis. Prominent FDG uptake is noted in the anterior neck, laryngeal structures contiguous to the distribution of the arytenoid cartilage and cricopharyngeus musculature most consistent with physiologic distribution of the radiopharmaceutical. There is evidence of apparent arterial injection artifact. Pertinent CT findings are as follows: CHEST: There is atherosclerotic calcification defined in the thoracic aorta without evidence of dilatation-aneurysm formation. A right hemithorax pleural effusion demonstrates no evidence of quantitatively significant increased glucose metabolism. Consolidative changes noted in the right upper lung field demonstrate mild non-quantitatively significant enhanced FDG uptake as previously described. There are no parenchymal densities-nodules noted in the left lung field. ABDOMEN AND PELVIS: There is atherosclerotic calcification defined in the abdominal aorta without evidence of dilatation-aneurysm formation. Pelvic arterial calcification is observed. Right-left inguinal soft tissue densities are non-glucose avid. SKELETAL: Degenerative changes are noted in the cervical, thoracic and lumbar spine. Lytic changes noted in several locations within the axial skeletal structures demonstrate quantitatively significant increased glucose metabolism as previously described. PET/PET/CT Tumor Base -Thigh Subs IMPRESSION: 1. ABNORMAL EXAMINATION INDICATIVE OF MALIGNANT-VIABLE METASTATIC NEOPLASM. 2. Enhanced radiopharmaceutical concentration noted in the axial skeletal structures fulfills quantitative criteria for viable osseous neoplasm. (Parveen, et al, Clinical Nuclear Medicine, 29:161, 2004). 3. Persistent non-nodular increased FDG uptake noted in the right upper lung field does not fulfill quantitative criteria for viable neoplasm. 4. Overall, compared to the prior FDG PET study dated 07/12/16, there is current expression of defined skeletal metastatic disease. Electronic Signature Isaiah Yin D.O. Electronically Signed: Isaiah Yin DO at 23:45 EDT Tel , Service support ,
== END ==
PROVIDERS: Family Provider Family Medicine; PCP Family Medicine; Referring Provider Internal Medicine Hematology & Oncology; Visit Provider Internal Medicine Hematology & Oncology
DX: C69.32 Malignant neoplasm of left choroid (principal)
CPT/HCPCS: 78815; A9552; A4216

== ENCOUNTER → 2018-07-16 09:01 | Outpatient (CLI) | payer MEDICARE, OTHER, SELFPAY ==
[2018-06-26 22:12] VITALS: BMI 23.3
[2018-07-16] VITALS (8 sets, daily range): BP systolic 106–149; BP diastolic 44–74; PULSE 84–96; RESP 16–25; O2SAT 96–100; BMI 23.3
--- NOTE | 2018-07-16 | IMM_PTH ---
PATIENT: DANIELLA BRENNER LOC: CT U#:[id number] AGE/SX: 84/F ROOM: RE07/16/[address]: Dr. Lc Berger DO : 1940 BED: DIS: SPEC #: [id number] RECD: 07/17/18 10:48 STATUS: TATA REQ #: [id number] SIOBHAN: 07/16/18 00:[address]: Lc Berger DEPT: IMMUNOHISTOCHEMISTRY RECD BY: Abigail Yadav ENTERED: 07/17/18 10:51 SP TYPE: IMMUNO OTHR DR: Dr. Mustapha Jean III, MD Tissues: Scapula, NOS Procedures: Synapto (add) NAPSIN A (add) CD56 (add) CEA (add) CHROMO (add) CK20 (add) CK7 (add) CK8 (add) GARCIA-2 (add) KI-67 (add) P53 (add) TTF1 (add) NEUROFIL (add) Pankeratin (initial) P40 (add) CDX2 (add) NSE (add) PHYSICIAN & [address] [address] SPECIMEN INFORMATION: Tissue Source: Left scapular lesion Clinical Info: Left scapular lesion Specimen Number: [id number] CPT code: 40979, 24056 x16 METHODOLOGY: Deparaffinized sections of prefer/formalin-fixed tissue or PAP/DQ stained slides are incubated with monoclonal/polyclonal antibodies/oligonucleotide probes. Localization is made via biotin free immunoperoxidase method. Appropriate controls are performed and reacted as expected. Results on target cell population are indicated in the following table: RESULTS: ANTIBODY / CLONE RESULT AE1-3 (AE1/AE3/PCK26) positive CK7 (OV-TL12/30) positive CK8 (85qgydG51) positive CK20 (KS20.8) negative P40 (BC28) negative CD56 (123C3.D5) positive Chromo (LK2H10) positive Synapto (polyclonal) positive Neurofil (2F11) negative NSE Neuron Specific Enolase negative TTF-1 (8G7G3/1) negative Napsin A (Rabbit Polyclonal) positive, dim CDX2 (OTY6391G) negative Ki-67 (30-9) positive, 75% CEA (11-7/TF-3HB-1) negative P53 (DO-7) positive, 2%, dim GARCIA-2 (SP21) positive These tests were developed and their performance characteristics determined by [facility]. They may not have been cleared or approved by the U.S. Food and Drug Administration. The FDA has determined that such clearance or approval is not necessary. INTERPRETATION: Left scapular lesion, CT-guided biopsy: Consistent with metastatic small cell neuroendocrine carcinoma. AM:woody 07/18/18
--- NOTE | 2018-07-16 | ASPIGT_PTH ---
PATIENT: DANIELLA BRENNER LOC: CT U#:[id number] AGE/SX: 84/F ROOM: RE07/16/[address]: Dr. Lc Berger DO : 1940 BED: DIS: SPEC #: [id number] RECD: 07/16/18 10:54 STATUS: TATA RELauryn #: [id number] SIOBHAN: 07/16/18 00:[address]: Lc Berger DEPT: SURGICAL PATHOLOGY RECD BY: Gregor Elizabeth ENTERED: 07/16/18 10:55 SP TYPE: ASP RAD OTHR DR: Dr. Mustapha Jean III, MD Tissues: Scapula, NOS Procedures: FNA Specimen Adequacy Special Stain Group II Surgery Specimen Level IV Imprint (control) HEADER OPERATION: CT-guided biopsy left scapular lesion PRE-OP DIAGNOSIS: Lung cancer TISSUE SUBMITTED: Left scapular lesion MICROSCOPIC DIAGNOSIS Left scapular lesion, CT-guided core biopsy: Consistent with metastatic small cell neuroendocrine carcinoma. See microscopic description and comment. AM:woody 07/17/18 COMMENT The specimen is evaluated at the time of biopsy by Dr. Umanzor. Immediate Evaluation = Positive for malignant cells consistent with neuroendocrine carcinoma. Immunohistochemistry ([id number]) supports the above diagnosis. MICROSCOPIC DESCRIPTION Slides are reviewed. Sections show a small neoplasm with closely clustered cells in small groups and an infiltrative pattern involving fibrous tissue and portions of bone. GROSS DESCRIPTION Received in fixative is one container labeled with the patient's name and designated CT-guided left scapular lesion biopsy. The specimen consists of five cuenca-pink needle core biopsies ranging in length from 0.3 to 0.6 cm. The specimen is totally submitted in one cassette. / CE:woody 07/16/18 TC:0 CPT: 05076
--- NOTE | 2018-07-16 09:12 | CT_ITS ---
PROCEDURE: CT GUIDED biopsy of the posterior left scapula. DATE: July 16, 2018. INDICATION: Female, 78 years old. History of metastatic carcinoid tumor. PHYSICIAN: Maximo Lang M.D. RADIATION DOSAGE (If Supplied By Facility): CTDIvol = ( 17 ) mGy, DLP = ( 459.48 ) mGycm. Individualized dose authorization techniques were utilized. PROCEDURE: The risks, benefits, and alternatives to the procedure were explained to the patient. The specific risk of hemorrhage requiring further treatment or intervention was detailed and accepted. Follow-up instructions were discussed with the patient as well. Written informed consent was obtained. The patient was brought into the CT suite and placed in the prone position. . An appropriate entry site was identified. The overlying skin was prepped and draped in the usual sterile fashion. 1% lidocaine was administered subcutaneously for local anesthesia. Conscious sedation was performed. The patient received 2 mg of Versed and 50 mcg of fentanyl intravenously. Conscious sedation was started at 9:47 AM and terminated at 10:15 AM. The patient was independently monitored by the interventional nurse. Under CT guidance, a total of 3 passes were performed utilizing a 18-gauge core biopsy needle. The specimens were then placed in the appropriate fluid and transported to the laboratory for analysis. Hemostasis was obtained. The patient tolerated the procedure well without immediate complications. CT/Biopsy/Inj or Needle Placement IMPRESSION: Successful CT guided biopsy of the posterior left scapula, as described above. Electronically Signed: Maximo Lang, at 10:44 EDT , Service support ,
[2018-07-16] MEDS: Midazolam 2 MG/2 ML Syringe IV (09:47)
[2018-07-16] MEDS: fentaNYL 100 MCG/2 ML Ampul IV (09:54)
== END ==
PROVIDERS: Family Provider Family Medicine; PCP Family Medicine; Referring Provider Internal Medicine Hematology & Oncology; Visit Provider Internal Medicine Hematology & Oncology
DX: C34.90 Malignant neoplasm of unspecified part of unspecified bronchus or lung (principal); R06.02 Shortness of breath
CPT/HCPCS: 20220; 77012; 88172; 88305; 88313; 88341; 88342; 99156; 99157; J7040; A4216

== ENCOUNTER 2018-07-25 09:52 | Day surgery (SDC) | payer MEDICARE, OTHER, SELFPAY ==
[2018-07-16 09:17] VITALS: BMI 23.3
--- NOTE | 2018-07-25 07:36 | HP.PCM_ITS ---
History and Physical Date of Admission: 07/25/18 HISTORY AND PHYSICAL ? Payton Roa 1940 ? ? REFERRING PHYSICIAN: Lc Berger DO ? CHIEF COMPLAINT: Consult ? HPI: The patient is a 78 year old female presents for need for IV access for chemotherapy. Denies history of blood clots. Denies history of clavicular fractures. Denies history of rib fractures. Denies history of shoulder fractures. Denies bleeding problems. Has had what sounds like a PICC line in the past - left sided. She is right handed. ? ? PAST MEDICAL HISTORY ? Amblyopia, right eye ? ? Anxiety 12/26/2009 ? Benign neoplasm of colon ? ? 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 Right Upper Lobe and station 4 R ? 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 Diarrhea ? ? Insomnia 12/06/2009 ? Lung cancer (HCC) 08/25/2013 ? Osteoarthrosis, unspecified whether generalized or localized, other specified sites ? ? PMH - PAST MEDICAL HISTORY OF 1960- present ? multiplebasal cell carcinoma Trunk and arm ? Tubular adenoma of colon 07/27/2016 ? 2010 ? Tubular adenoma of colon 07/27/2016 ? 201008/23/16: proximal transverse colon ? Urethral caruncle ? ? Vitamin D deficiency 09/24/2013 ? PAST SURGICAL HISTORY ? BX OF BREAST; INCISIONAL ? 1979's ? Bx of breast, incisional right benign ? COLONOSCOP W/ OR W/O [facility] SPE[facility] ? 10/29/01 ? Colonoscopy ? COLONOSCOPY W/BX ? 07/06/10 ? COLONOSCOPY W/BX ? 08/23/2016 ? D&C, DIAG AND/OR THERAPEUTIC ? ? ? Dilation & curettage ? EGD W/O OR W/BRUSH/WASH ? 07/30/2014 ? EGD ? HYSTEROSCOPY, DIAGNOSTIC (SEPARATE ? ? ? Hysteroscopy curettage of uterus fo polyps ? LUNG SURGERY HX ? ? ? PAST SURGICAL HISTORY OF ? ? ? basal cell carcinoma removed posy scalp area ? PDT OS (LEFT EYE) Left 08/08/2016 ? PDT OS (LEFT EYE) Left 03/06/2017 ? REMOVAL OF LUNG,LOBECTOMY ? 09/08/2013 ? Right VATS upper lobectomy, lymphadenectomy, rib blocks ? ? Current Outpatient Medications: ibuprofen (MOTRIN) 200 mg tablet Take 200 mg by mouth as needed. metoprolol succinate ER (TOPROL XL) 25 mg 24 hr tablet Take 1 tablet by mouth twice daily. predniSONE (DELTASONE) 5 mg tablet Take 1 tablet by mouth once daily. Cholecalciferol, Vitamin D3, 2,000 unit cap Take 1 capsule by mouth once daily. Ipratropium Henderson (ATROVENT) 0.03 % nasal spray Use 2 Sprays in the nose every 12 hours. estradiol (ESTRACE) 0.01 % (0.1 mg/gram) vaginal cream 1 gram per vagina at HS twice a week and use sparingly over the urethra qhs metoprolol succinate ER (TOPROL XL) 50 mg 24 hr tablet Take 1 tablet by mouth daily with breakfast. (Patient not taking: Reported on 07/24/2018 metoprolol succinate ER (TOPROL XL) 25 mg 24 hr tablet Take 1 tablet by mouth daily with dinner. perflutren lipid microspheres (DEFINITY) 1.1 mg/mL injection (to be provided with echo procedure) Inject 1.3 mL intravenously as directed. (Patient not taking: pilocarpine (SALAGEN, PILOCARPINE,) 5 mg tablet Take 1 tablet by mouth three times daily. zolpidem (AMBIEN) 5 mg tablet Take 1-1.5 tablets by mouth at bedtime as needed for Sedation for up to 30 days. ? ? ALLERGIES: Levaquin [Levofloxacin]; Fluorouracil ? PERSONAL HISTORY: Social History Socioeconomic History Marital status: Spouse name: Danie Ellison Number of children: 2 Years of education: 19 Highest education level: Not on file Social Needs Financial resource strain: Not on file Food insecurity - worry: Not on file Food insecurity - inability: Not on file Transportation needs - medical: Not on file Transportation needs - non-medical: Not on file Occupational History Occupation: Retired Employer: [employer] Occupation: Staff Employer: [employer] Tobacco Use Smoking status: Never Smoker Smokeless tobacco: Never Used Tobacco comment: Parents and spouse did not smoke. Substance and Sexual Activity Alcohol use: No Comment: None since prednisone. Previously very infrequently. Drug use: No Sexual activity: Not on file Comment: not asked Other Topics Concerns: Not on file Social History Narrative Not on file ? FAMILY HISTORY ? Hypertension Mother ? ? age 97 ? Heart Mother ? ? Heart Father ? ? age 57 ? Ischemic Heart Disease Father ? ? Heart Brother ? ? Atrial Fib, s/p Ablation ? No Ocular Disease Other ? ? None No Family History ? ? No lung disease. ? ? REVIEW OF SYSTEMS: General: The patient notes fatigue, denies weight loss, denies weight gain, denies feeling hot, and notes feelings of cold. Eyes: The patient denies glaucoma, notes eye injury/surgery, does not wear glasses or contacts. Ear/Nose/Throat: The patient denies allergies, denies hayfever, denies ear infections, and denies bloody noses. Cardiovascular: The patient denies chest pain, denies heart disease, denies high blood pressure,denies cardiac stent, denies prior heart attack, denies irregular heart beat, denies high cholesterol, denies poor circulation, denies heart failure, other cardiac issues, denies claudication, denies cold feet, denies peripheral arterial stent. Respiratory: The patient denies tuberculosis, denies pneumonia, denies frequent cough, denies pulmonary embolism, denies shortness of breath, and denies coughing up blood. Gastrointestinal: The patient denies difficulty swallowing, denies acid reflux, denies ulcers, denies vomiting, denies jaundice/hepatitis, denies gallbladder problems, denies black or tarry stools, denies hemorrhoids, denies bleeding from rectum, denies diverticulitis, denies constipation, denies diarrhea, denies loss of stool control, and denies hernias. Kidney/Bladder: The patient denies kidney stones, denies urine infections, and denies bloody urine. Skin: The patient notes a history of skin cancer, denies bleeding/changing moles, and denies a history of skin rash. Neurologic: The patient denies a history of epilepsy/convulsions, denies headaches, denies head/spinal injuries, and denies stroke/TIA. Psychiatric: The patient denies psychiatric medications, denies depression, and denies voices, denies substance abuse. Endocrine: The patient denies thyroid disorders, denies diabetes, and denies hormonal problems. Hematologic: The patient denies a history of bruising, denies bleeding, and denies anemia, denies blood clots. Infections: The patient denies a history of measles and mumps, denies rheumatic fever, and denies sexually transmitted diseases. Musculoskeletal: The patient denies back pain/injury, denies back problems, denies sciatica, denies knee/foot trouble, denies arthritis, or denies gout. ? PHYSICAL EXAMINATION: General: The patient is 78 year old female, well nourished, well hydrated in no acute distress. The patient is oriented to time, place, and person. VITALS: Blood pressure 150/60, pulse 113, temperature 36.5 ?C (97.7 ?F), weight 64 kg (141 lb 3.2 oz), SpO2 94 %. Body mass index is 23.68 kg/m?. Head ? Normocephalic. EOM intact with sclera clear and no icterus noted. Wearing glasses. Mouth with mucus membranes moist. Neck - supple with no jugular venous distention noted. Trachea is midline. No masses noted. Lungs ? clear to auscultation. Normal breath sounds. No rales/rhonchi/wheezing noted. No labored breathing noted, such as retractions. Heart ? normal S1 and S2 auscultated. No rubs/clicks/murmurs noted. Regular rate. Abdomen ? soft and benign. Normal bowel sounds. No abdominal bruits noted. No masses noted. Extremities ? no calf tenderness noted. No pitting edema noted. Skin ? normal skin integrity. Lymph ? no cervical adenopathy detected, no supraclavicular adenopathy detected, no axillary adenopathy detected Neurological ? gait normal, no focal deficits noted. Psych ? calm and appropriate ? ? IMPRESSION: metastatic lung cancer, need for IV access ? PLAN: I have discussed the above with the patient. I have offered portacath placement I have explained the procedure to the patient. I have counseled the patient as to the risks of the procedure, including but not limited to: infection, bleeding, injury to any blood vessels/nerves, scar tissue, injury to the lung such as pneumothorax or hemothorax, inability to place portacath, non functioning of the port, thromboses of the port, wound infections, complications of anesthesia, etc. ? the patient understands. The patient wishes to proceed. I have answered all questions to the patient?s satisfaction and the patient has no further questions. . Diagnoses: (C79.51) Bone metastasis (HCC) (primary encounter diagnosis) (C34.90) Small cell lung cancer (HCC) (Z45.2) Exhausted vascular access
[2018-07-25 10:25] VITALS: BP 142/67; PULSE 94; RESP 18; TEMP 37; O2SAT 96; BMI 22.8
[2018-07-25] MEDS: Cefazolin 2 GM in 0.9% Normal Saline 100 ML IV (12:15)
--- NOTE | 2018-07-25 12:17 | OP.PCM_ITS ---
Report of Operation Date of Procedure: 07/25/18 Pre-Operative Diagnosis: metastatic lung cancer, need for IV access for ch emotherapy Post-Operative Diagnosis: same Surgery/Procedure Performed:: placement of permanent tunnelled catheter in right internal jugular vein with subcutaneous port Description of Surgical Findings:: normal right IJ anatomy to SVC noted Anesthesiologist: Savannah Alvarez Specimen's removed: none Drains: none Estimated Blood Loss (mL): < 10 ml Fluids Replaced: see anesthesia note Description of Procedure: After informed consent was given, the patient was brought to the Operating Room. Appropriate time out protocol was followed. She was then placed in the supine position. She was then given IV conscious sedation for anesthesia. The patient?s upper chest and neck were then prepped with a surgical skin preparation and sterile surgical drapes were placed. After proper landmarks were ascertained, the skin at the upper right chest area was then infiltrated with 1% xylocaine with epinephrine. The ultrasound transducer probe was then draped sterile and used to evaluate the right neck area. The right internal jugular vein was then identified. A needle trocar was then inserted into the right internal jugular vein using ultrasound guidance and there was good a spiration of venous blood. A wire was then threaded into the needle trocar and this was visualized under fluoroscopy to ensure that the wire was in the right internal jugular vein and directed to the SVC toward the cardiac silhouette. Once this was done, then the needle trocar was removed. A small skin luís was made with an 11 blade knife at the wire entrance site. The dilator with the introducer sheath attached was then placed over the wire into the right internal jugular vein via the Seldinger technique and this was visualized under fluoroscopy. The dilator and sheath were in proper position as visualized by fluoroscopy. The wire and dilator were then removed. The catheter was then threaded into the introducer sheath and was positioned with its tip at the junction of the superior vena cava and the right atrium as visualized under fluoroscopy. The catheter was flushed with a heparin saline mixture prior to placement. A subcutaneous pocket was then created caudad to the catheter insertion site. A transverse skin incision was made after the skin and subcutaneous tissues were infiltrated with local anesthetic. Blunt dissection was then used to create a space large enough for placement of the subcutaneous port. Hemostasis was carefully controlled with electrocautery. The port was sutured to the subcutaneous fascia using vicryl suture at three sites. The catheter was then tunneled into the subcutaneous pocket. The excess catheter was transected. The catheter was then attached to the subcutaneous port using team facilitator?s guidelines. The port was then placed in the subcutaneous pocket and the sutures were ligated. The subdermal incisional sites were reapproximated with interrupted vicryl suture. The skin was reapproximated with monocryl suture in a subcuticular fashion. Cavilon and steristrips were used for reinforcement of the skin closure and a sterile opsite dressing was applied. The patient was brought to the Recovery Room in stable condition. Grafts/Implants Used: Power[employer] Bard Lot# [id number] ref [id number] - Complications none noted
[2018-07-25 13:30] VITALS: BP 131/60; BP 134/68; BP 142/67; PULSE 100; PULSE 102; RESP 18; TEMP 36.1; O2SAT 92; O2SAT 93
[2018-07-25 13:35] VITALS: BP 126/59; BP 142/67; PULSE 100; RESP 18; O2SAT 94
[2018-07-25 13:40] VITALS: BP 135/55; BP 142/67; PULSE 99; RESP 18; O2SAT 94
--- NOTE | 2018-07-25 13:44 | RAD_ITS ---
STUDY: X-RAY CHEST REASON FOR EXAM: Female, 78 years old. Port placement. TECHNIQUE: Single AP portable view of the chest. COMPARISON: Comparison is made with prior study dated October 02, 2015. FINDINGS: A right-sided portacatheter has been placed. The tip is in the right atrium. Stable appearance of the right hilar soft tissue density suggestive of post radiation fibrosis with bronchiectasis. Stable blunting of the right costophrenic angle. Mild increased markings at the left lung base which is new as compared to prior study. This may represent atelectasis and/or infiltrate. Normal size heart. Normal mediastinum and philomena. Normal visualized pulmonary arteries. Normal visualized aortic arch and descending thoracic aorta. There are diffuse degenerative changes of the visualized thoracic spine. Normal visualized ribs, clavicles, and shoulders. There is no demonstrated abnormality of the visualized soft tissue structures of the upper abdomen. RAD/CXR for Line Placement IMPRESSION: The tip of the a portacatheter is in the right atrium. Left lower lobe infiltrate and/or atelectasis. Electronically Signed: Maximo Lang, at 14:21 EDT , Service support ,
--- NOTE | 2018-07-25 14:14 | DCINST_ITS ---
Discharge Diet: No Restrictions Discharge Activity: Return to Normal Activity, May not drive while taking narcotic pain medications. Call your doctor if your incision/area has: Continuous Slow Oozing, Foul Smelling Discharge Call your doctor if you observe: Fever of 101 or Higher Additional Dressing/Incision Instructions:: Leave dressings in place. may get wet in shower. Do not soak - no tub baths/swimming Allergies/Adverse Reactions: Allergies fluorouracil Allergy (Verified 07/24/18 16:23) Swelling Medications to take at Discharge Estradiol [Estrace Vaginal Cream] 1 dose VAGINAL DAILY 11/02/13 Calcium (Elemental) [Os-Von 500] 500 mg PO QODAY 06/26/18 Cholecalciferol (Vitamin D3) [D3-2000] 2,000 unit PO DAILY 06/26/18 Metoprolol Succinate [Toprol Xl] 25 mg PO BID 06/26/18 Prednisone 5 mg PO DAILY 06/26/18 Zolpidem Tartrate 5 mg PO PRN PRN 06/26/18 Hydrocodone Bitart/Apap 5-325 [[place] 5MG-325MG] 1 tab PO Q6H PRN PRN 3 Days #10 tab 07/25/18 The following prescriptions were given: Hydrocodone Bitart/Apap 5-325 [[place] 5MG-325MG] 1 tab PO Q6H PRN PRN 3 Days #10 tab PRN Reason: Pain Primary Care Physician: Mustapha Jean III, MD [Primary Care Provider] - Test Results: Test results from this visit will be discussed in further detail at your follow- up appointment, if applicable. Please Follow Up With: Payton West MD - call When: to be seen in 7-10 days, please call for date and time, thank you
[2018-07-25 14:28] VITALS: BP 142/67
== END 2018-07-25 15:12 | disposition home or self-care (01) ==
LOC: SDC 09:53 → AC 09:54
PROVIDERS: Family Provider Family Medicine; PCP Family Medicine; Referring Provider Family Medicine; Visit Provider Surgery
PROC: (CPT 36561; principal; 2018-07-25 11:45)
DX: Z45.2 Encounter for adjustment and management of vascular access device (principal); C34.90 Malignant neoplasm of unspecified part of unspecified bronchus or lung; C79.51 Secondary malignant neoplasm of bone; Z88.1 Allergy status to other antibiotic agents; Z82.49 Family history of ischemic heart disease and other diseases of the circulatory system
CPT/HCPCS: 36561; 71045; 77001; J7050; J7120; C1788; J2405

== ENCOUNTER 2018-10-11 08:57 | Outpatient (CLI) | payer MEDICARE, OTHER, SELFPAY ==
[2018-10-11] VITALS (12 sets, daily range): BP systolic 118–146; BP diastolic 55–86; PULSE 95–105; RESP 16–18; TEMP 36.4–37.1; O2SAT 95–99; BMI 22.1
[2018-10-11] MEDS: 0.9% NaCl VAD Flush IV (17:05)
== END 2018-10-11 17:15 | disposition home or self-care (01) ==
LOC: MEDOUTP 08:58 → MS3 08:59
PROVIDERS: Family Provider Family Medicine; PCP Family Medicine; Referring Provider Internal Medicine Hematology & Oncology; Visit Provider Internal Medicine Hematology & Oncology
DX: Z51.89 Encounter for other specified aftercare (principal); D64.81 Anemia due to antineoplastic chemotherapy
CPT/HCPCS: 36430; 86850; 86900; 86901; 86920; 86922; 86965; J7040; P9016; P9035; A4216